=== PATIENT | male | born 1955 | race Caucasian/White ===

== ENCOUNTER → 2018-02-02 | Outpatient (CLI) | payer OTHER | LOC: M WUC 19:00 | DX: S91.332A Puncture wound without foreign body, left foot, initial encounter (principal); X58.XXXA Exposure to other specified factors, initial encounter; Y92.9 Unspecified place or not applicable | CPT/HCPCS: 73620 ==

== ENCOUNTER → 2018-10-12 | Outpatient (REF) | payer MEDICARE, OTHER ==
[~2018-10-12] MED LIST: ACET65TA PO; ASPI81TA83; ATOR1TAB21 PO; BENI20TA11 OR; CARV6.25 PO; COUM1TAB17 PO; COUM1TAB18 OR; COZA100T2 PO; EC-N500T; EXTR500C4 PO; FLEET PR; GLUC850T PO; HYDR12.55 PO; IBUPOTC PO; LOSA100T8 PO; NICO21DI6 TD; OXYC10TA97 PO; PERC5TAB12 PO; PERC5TAB8 OR; PERC7.5T8 OR; TYLE325T5 PO; [UNRECOGNIZED DRUG - OTHER] PO
[2018-10-12 16:37] LABS: BASO # 0.1 10^3/uL (0.0-0.2); BASO % 0.7 % (0.0-1.0); EOS # 0.3 10^3/uL (0.0-0.50); EOS % 3.4 % (0.0-3.0); HEMATOCRIT 43.9 % (42.0-52.0); HEMOGLOBIN 14.5 g/dl (13.5-17.5); LYMPH # 2.4 10^3/uL (1.5-4.5); MEAN CORPUSCULAR HEMOGLOBIN 30.7 pg (27.0-33.0); MONO # 0.5 10^3/uL (0.0-0.8); MONO % 6.2 % (0.0-5.0); NEUTROPHILS # 5.3 10^3/uL (1.8-7.7); NEUTROPHILS % 61.4 % (36.0-66.0); PLATELET COUNT, AUTOMATED 253 10^3/uL (150-450); RED BLOOD COUNT 4.72 10^6/uL (4.30-6.10); WHITE BLOOD COUNT 8.7 10^3/uL (4.0-10.0)
[2018-10-12 17:24] LABS: ERYTHROCYTE SEDIMENTATION RATE 29 mm/hr (0-20)
== END ==
LOC: M LABDRAW1 15:42
PROVIDERS: ATTEND Orthopaedic Surgery
DX: Z96.642 Presence of left artificial hip joint (principal)

== ENCOUNTER → 2018-10-14 | Outpatient (CLI) | payer OTHER, MEDICARE ==
--- NOTE | 2018-10-14 13:37 | REP ---
THREE-PHASE BONE SCAN OF THE PELVIS HIPS AND THIGHS. HISTORY: Progressive left hip pain. History of left hip replacement 2016 and right hip replacement in 2011. Evaluate left hip. Rule out loose body. TECHNIQUE: 22.0 mCi technetium 99m MDP is injected and three-phase imaging of the pelvis and hips is acquired. Planar images are included of the distal thighs bilaterally. SCINTIGRAPHIC FINDINGS: Anterior and posterior flow images are normal. Blood pool images show no area of significant hyperemia. There is faint prosthesis bone interface uptake in the left hip prosthesis. Delayed scan images demonstrate prosthesis bone interface uptake along the medial aspect of the proximal femur at the level of the lesser trochanter. There is also a focus of increased uptake at the distal tip of the femoral stem prosthesis. This pattern is felt to be suggestive of loosening. There is arthritic uptake in the right knee patellofemoral articulation. Photopenia is seen in the right femoral head related to the right hip prosthesis. There is no evidence of loosening or infection on the right. IMPRESSION: Scintigraphic pattern of increased uptake at the proximal and mid femur on the left suggestive of loosening of the left femoral arthroplasty component. Electronically Signed by Nehemias Holman MD 10/14/2018 05:28 P
== END ==
LOC: M RAD 08:25
PROVIDERS: ATTEND Orthopaedic Surgery
DX: Z96.642 Presence of left artificial hip joint (principal)
CPT/HCPCS: 78315; A9503

== ENCOUNTER 2019-04-03 16:00 | Observation (INO) | payer MEDICARE, OTHER ==
[~2019-04-03] VITALS: Ht 182.9 cm; Wt 105.1 kg
[2019-04-03] MEDS ORDERED: ASPI81TA85 PO (16:17)
[2019-04-03] MEDS ORDERED: TRAM50TA2 PO (16:17)
[2019-04-03 16:52] LABS: BASO # 0.1 10^3/uL (0.0-0.2); BASO % 0.6 % (0.0-1.0); EOS # 0.2 10^3/uL (0.0-0.5); EOS % 1.8 % (0.0-3.0); HEMATOCRIT 40.2 % (42.0-52.0); HEMOGLOBIN 13.8 g/dl (13.5-17.5); LYMPH # 2.4 10^3/uL (1.5-5.0); LYMPH % 25.6 % (24.0-44.0); MEAN CORPUSCULAR HEMOGLOBIN 31.4 pg (27.0-33.0); MEAN CORPUSCULAR HGB CONC 34.3 g/dl (32.0-36.5); MEAN CORPUSCULAR VOLUME 91.4 fl (80.0-96.0); MONO # 0.6 10^3/uL (0.0-0.8); MONO % 6.6 % (0.0-5.0); NEUTROPHILS % 65.1 % (36.0-66.0); PLATELET COUNT, AUTOMATED 246 10^3/uL (150-450); WHITE BLOOD COUNT 9.3 10^3/uL (4.0-10.0)
[2019-04-03 17:34] LABS: ACETAMINOPHEN LEVEL < 2.0 UG/ML (10.0-30.0); ALBUMIN 3.3 GM/DL (3.2-5.2); ALT/SGPT 34 U/L (12-78); BILIRUBIN,DIRECT 0.1 MG/DL (0.0-0.2); BILIRUBIN,TOTAL 0.7 MG/DL (0.2-1.0); BLOOD UREA NITROGEN 15 MG/DL (7-18); CALCIUM LEVEL 8.9 MG/DL (8.8-10.2); CARBON DIOXIDE LEVEL 28 MEQ/L (21-32); CHLORIDE LEVEL 101 MEQ/L (98-107); CK-MB VALUE MASS 1.8 NG/ML (<3.6); CPK CREATINE PHOSPHOKINASE 99 U/L (39-308); CREATININE FOR GFR 1.19 MG/DL (0.70-1.30); ETHYL ALCOHOL (ETHANOL) < 0.003 % (0.000-0.010); GLOMERULAR FILTRATION RATE > 60.0 (>49); GLUCOSE, FASTING 236 MG/DL (70-100); MB/CK RELATIVE INDEX 1.82 (< OR =4); SALICYLATE LEVEL < 1.7 MG/DL (5.0-30.0); SODIUM LEVEL 135 MEQ/L (136-145); TOTAL PROTEIN 7.8 GM/DL (6.4-8.2); TROPONIN I < 0.02 NG/ML (< 0.10)
[2019-04-03 17:50] LABS: INR 1.08; PROTHROMBIN TIME 13.7 SECONDS (11.8-14.0)
[2019-04-03 17:56] LABS: HEMOGLOBIN A1c 8.8 %
[2019-04-03] MEDS: NS 1,000 ML IV SCH (18:37)
--- NOTE | 2019-04-03 19:12 | HPEPDOC ---
[facility] Medical History & Physical Date of Admission Apr 03, 2019 Date of Service: Apr 03, 2019 Primary Care Physician: A Other Provider Adán North MD Attending Physician: SYLVESTER CROCKETT MD History and Physical TIME OF SERVICE: 755PM CHIEF COMPLAINT: confusion HISTORY OF PRESENT ILLNESS: This is a 63 year-old male that was at a wedding earlier on today and unable to recognize anyone. He was calling everyone cheese sarita; this resolved upon arrival in the ED. Currently his verbal response is slow, when asked what day it is it takes him several attempts but he is finally able to give the right answer. This has been occurring off and on for 2 months; he finds it embarrassing. Per discussion with Yen his head and labs are unremarkable. Currently he denies having any acute complaints, denies having fevers, denies having chills, denies having cough, denies having a runny nose, denies having abdominal pain, denies having joint pain. 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 He was taken off of metformin about one year ago and no longer monitors his sugars. According to his he was told that he might have to start taking metformin again because he gained weight . REVIEW OF SYSTEMS: 12 point review of systems negative except as listed in HPI PAST MEDICAL/ SURGICAL HISTORY: Type 2 diabetes. Chronic hypertension. Dyslipidemia Right hip arthritis status post right total hip replacement Status post wrist surgery SOCIAL HISTORY: quit smoking 3 years ago FAMILY HISTORY: Mother may have had cancer ALLERGIES: Please see below. HOME MEDICATIONS: Please see below. PHYSICAL EXAMINATION: VITAL SIGNS: Please see below. GENERAL APPEARANCE: well-nourished, well-developed, not in apparent distress HEENT: no cephalic, atraumatic. Mucous members moist and pink CARDIOVASCULAR: rate and rhythm. No murmurs, rubs or gallops. Radial pulses are intact. There is no extremity edema LUNGS: Clear to auscultation bilaterally on room air MUSCULOSKELETAL: range of motion intact in all 4 extremities and back. INTEGUMENT: spider angiomata noted on the nares NEUROLOGICAL: cranial nerves II-12 are grossly intact. Speech is not dysarthric. trength 5 out of 5 in all extremities. Sensation intact in all extremities. There is no clonus. PSYCHIATRIC: alert and oriented, able to understand and follow commands LABORATORY DATA: See below. IMAGING: CT of the head. Based on personal visualizations appears unremarkable but the final report is pending. Chest x-ray there appears to be in obesity at the left, but the final report is pending MICROBIOLOGY: Please see below. ASSESSMENT: Mr. Sutherland is a 63-year-old male with a past medical history of diabetes, chronic hypertension, dyslipidemia and right hip OA who will be admitted for evaluation of intermittent episodes of confusion. PLAN: 1. Intermittent episodes of altered mental status Suspect that this may be due to hyperglycemia as the the patient is no longer taking anti-glycemic agents and has gained weight. Other possible causes include: TIA/stroke, hypertensive encephalopathy, hypothyroidism, hyperthyroidism) less likely, partial seizure. Vitals, electrolytes, LFTs, and serum alcohol are unrevealing. Plan: Admit to medical floor/telemetry/ neurochecks Q6H / ASA 325mg now / continue with aspirin 81mg daily, atorvastatin / f/u accuchecks, lipid panel, TSH, MRI of the brain and carotid US / follow up final head CT and chest x-ray reports/ pending the results of the inial work up, the day time team can determine if an EEG and or a neuro consult are warranted 2.Uncontrolled hypertension He hasn't taken his antihypertensive medication today. Plan: c/w home meds 3. Type 2 diabetes A1c 8.8 % Plan: diabetic diet / f/u accuchecks / hypoglycemia protocol / sliding scale insulin / the patient will need to be discharged with anti-glycemic agents 4.Right hip arthritis Plan: Decrease tramadol from 50-25 mg daily because this medication can cause confusion 5.Dyslipidemia c/w home meds 6.Obesity BMI 31.3 Plan: can f/u w PCP for ST[employer] BANG questionnaire & scrub technician consult / recommend cardiovascular exercise for 40 min 4-5 days a week DVT Px w SCDs Disposition pending clinical course Vital Signs Vital Signs Date Time Temp Pulse Resp B/P (MAP) Pulse Ox O2 Delivery O2 Flow Rate FiO2 04/03/19 18:30 72 162/74 (103) 04/03/19 18:00 99 Laboratory Data Labs 24H Laboratory Tests 2 04/03/19 16:38: Immature Granulocyte % (Auto) 0.3, White Blood Count 9.3, Red Blood Count 4.40, Hemoglobin 13.8, Hematocrit 40.2L, Mean Corpuscular Volume 91.4, Mean Corpuscular Hemoglobin 31.4, Mean Corpuscular Hemoglobin Concent 34.3, Red Cell Distribution Width 12.8, Platelet Count 246, Neutrophils (%) (Auto) 65.1, Lymphocytes (%) (Auto) 25.6, Monocytes (%) (Auto) 6.6H, Eosinophils (%) (Auto) 1.8, Basophils (%) (Auto) 0.6, Neutrophils # (Auto) 6.0, Lymphocytes # (Auto) 2.4, Monocytes # (Auto) 0.6, Eosinophils # (Auto) 0.2, Basophils # (Auto) 0.1, Nucleated Red Blood Cells % (auto) 0.0, Prothrombin Time 13.7, Prothromb Time International Ratio 1.08, Anion Gap 6L, Glomerular Filtration Rate > 60.0, Estimated Mean Plasma Glucose 206H, Hemoglobin A1c 8.8, Calcium Level 8.9, Aspartate Amino Transf (AST/SGOT) 15, Alanine Aminotransferase (ALT/SGPT) 34, Alkaline Phosphatase 91, Total Bilirubin 0.7, Direct Bilirubin 0.1, Total Creatine Kinase 99, Creatine Kinase MB 1.8, Creatine Kinase MB Relative Index 1.82, Troponin I < 0.02, Total Protein 7.8, Albumin 3.3, Albumin/Globulin Ratio 0.73L, Thyroid Stimulating Hormone (TSH) 1.000, Salicylates Level < 1.7L, Acetaminophen Level < 2.0L, Ethyl Alcohol Level < 0.003 CBC/BMP Laboratory Tests 04/03/19 16:38 Red Blood Count 4.40, Mean Corpuscular Volume 91.4, Mean Corpuscular Hemoglobin 31.4, Mean Corpuscular Hemoglobin Concent 34.3, Red Cell Distribution Width 12.8, Neutrophils (%) (Auto) 65.1, Lymphocytes (%) (Auto) 25.6, Monocytes (%) (Auto) 6.6 H, Eosinophils (%) (Auto) 1.8, Basophils (%) (Auto) 0.6, Neutrophils # (Auto) 6.0, Lymphocytes # (Auto) 2.4, Monocytes # (Auto) 0.6, Eosinophils # (Auto) 0.2, Basophils # (Auto) 0.1 Home Medications Scheduled Aspirin (Aspir 81) 81 Mg Tablet.dr, 81 MG PO QHS Atorvastatin Calcium (Atorvastatin Calcium) 20 Mg Tab, 20 MG PO QHS Carvedilol (Carvedilol) 6.25 Mg Tab, 6.25 MG PO QHS Losartan Potassium (Losartan Potassium) 25 Mg Tablet, 12.5 MG PO QHS Scheduled PRN Tramadol HCl (Tramadol HCl) 50 Mg Tablet, 50 MG PO DAILY PRN for pain Allergies Coded Allergies: morphine (Verified Adverse Reaction, Unknown, 04/03/19) A-FIB/CHADSVASC A-FIB History Current/History of A-Fib/PAF?: No Current PO Anticoag Therapy: No SYLVESTER CROCKETT MD Apr 03, 2019 19:12
[2019-04-03] MEDS ORDERED: DEXTROSE 50% 50 ML SYRINGE IV PRN (19:30)
[2019-04-03] MEDS ORDERED: GLUCAGON FOR INJ 1 MG VIAL (J1610) SC PRN (19:30)
[2019-04-03] MEDS ORDERED: GLUCOSE 4 GM CHEW TABLET PO PRN (19:30)
[2019-04-03] MEDS ORDERED: ASPIRIN 81 MG CHEW TABLET PO ONE (19:30)
[2019-04-03] MEDS ORDERED: LOSA25TA14 PO (19:54)
[2019-04-03] MEDS ORDERED: traMADol 50 MG TAB PO PRN (20:30)
[2019-04-03] MEDS: HumaLOG INSULIN (NovoLOG) PER UNIT SC SCH (21:00)
--- NOTE | 2019-04-03 21:03 | REPVR ---
PROCEDURE INFORMATION: Exam: US Duplex Bilateral Extracranial Arteries Exam date and time: 04/03/2019 8:13 PM Clinical history: 63 years old, male; Altered mental status/memory loss; Confusion or disorientation; Additional info: Altered mental status R/O CVA TECHNIQUE: Imaging protocol: Real-time Duplex ultrasound scan of the Bilateral carotid and vertebral arteries combining calles scale, color Doppler and spectral waveform analysis. Bilateral exam. COMPARISON: No relevant prior studies available. FINDINGS: Right common carotid artery: Unremarkable. No occlusion or stenosis. Waveforms are normal. Right internal carotid artery: Mild plaque in the proximal ICA. No occlusion or stenosis. Waveforms are normal. Right ICA/CCA ratio: Right ICA/CCA peak systolic ratio:0.74 Right ICA/CCA end-diastolic ratio:1.70 Right external carotid artery: No stenosis in the origin. Right vertebral artery: Not visualized. Left common carotid artery: Unremarkable. No occlusion or stenosis. Waveforms are normal. Left internal carotid artery: Mild plaque in the origin. Peak systolic velocity of 131 cm/s proximally increasing to 176 cm/s distally. Mild turbulent of blood flow. Left ICA/CCA ratio: Left ICA/CCA peak systolic ratio:1.5 Left external carotid artery: Left ICA/ECA end diastolic ratio: 4.25 Left vertebral artery: Unremarkable. Antegrade flow. IMPRESSION: 1. Elevated velocity and pattern of blood flow in the left ICA 50-69% stenosis. 2. No significant right ICA stenosis. 3. Antegrade flow left vertebral artery. 4. Right vertebral artery was not visualized. COMMENT: Carotid Stenosis Reference using SRU criteria: Mild: less than 50% stenosis. ICA PSV is less than 125 cm/second and plaque or intimal thickening is visible. Moderate: 50-69% stenosis. ICA PSV is 125 to 230 cm/second and plaque is visible. Severe: 70-94% stenosis. ICA PSV is more than 230 cm/second and visible plaque and lumen narrowing are seen. Near occlusion: 95-99% stenosis. ICA PSV is variable and significant plaque and luminal narrowing are seen. Occluded: 100% stenosis. No flow identified. Electronically signed by: Ancelmo Gomez On 04/03/2019 21:03:27 PM
[2019-04-03 21:05] LABS: CHOLESTEROL LEVEL 96 MG/DL (<200); CHOLESTEROL RISK RATIO 3.428 (<5); HDL CHOLESTEROL 28 MG/DL (>40); LDL CHOLESTEROL 39 MG/DL (<100); NON-HDL-C 68 MG/DL; TRIGLYCERIDES LEVEL 145 MG/DL (<150)
[2019-04-03 22:00] VITALS: BP 153/75
[2019-04-03] MEDS: LOSARTAN 25 MG TAB PO SCH (22:48)
[2019-04-03] MEDS: CARVedilol 6.25 MG TAB PO SCH (22:49)
[2019-04-03] MEDS: ATORVASTATIN 20 MG TAB PO SCH (22:49)
[2019-04-04] VITALS (8 sets, daily range): BP systolic 118–168; BP diastolic 66–95
[2019-04-04] MEDS: NS 1,000 ML IV SCH ×2 (04:42→16:24)
[2019-04-04] MEDS ORDERED: ISOVUE-370 76% 100ML VIAL (Q9967) As Ordered ONE (06:02)
--- NOTE | 2019-04-04 06:41 | REPVR ---
PROCEDURE INFORMATION: Exam: CT Head without contrast Exam date and time: 04/04/2019 6:10 AM Clinical history: 63 years old, male; Altered mental status/memory loss; Confusion or disorientation; Additional info: AMS TECHNIQUE: Imaging protocol: Computed tomography of the head without contrast. Radiation optimization: All CT scans at this facility use at least one of these dose optimization techniques: automated exposure control; mA and/or kV adjustment per patient size (includes targeted exams where dose is matched to clinical indication); or iterative reconstruction. COMPARISON: CT Head without contrast 04/03/2019 4:08 PM FINDINGS: Brain: There is mild, diffuse parenchymal volume loss. The cortical/white matter interfaces are preserved throughout the brain. There is no evidence of intracranial hemorrhage. No parenchymal mass lesions are identified. Ventricles: The ventricular system demonstrates mild diffuse compensatory enlargement. Bones/joints: No acute fractures of the skull are identified. Sinuses: There is minimal mucoperiosteal thickening in the visualized paranasal sinuses. No fluid levels. Mastoid air cells: The visualized mastoid air cells are clear. Soft tissues: The soft tissues appear unremarkable. Vasculature: Atherosclerotic calcifications are seen in the cerebral arteries at the skull base. IMPRESSION: No evidence of acute infarct, mass or hemorrhage. Electronically signed by: Roula Gloria On 04/04/2019 06:40:57 AM
--- NOTE | 2019-04-04 06:49 | REPVR ---
PROCEDURE INFORMATION: Exam: CT Angiography Head With Contrast Exam date and time: 04/04/2019 6:10 AM Clinical history: 63 years old, male; Cognitive deficit; Altered mental status; Additional info: AMS RO CVA / ? MR use 2/2 to hip hardware TECHNIQUE: Imaging protocol: Computed tomography angiography of the head with intravenous contrast. 3D rendering: MIP reconstructed images were created and reviewed. Radiation optimization: All CT scans at this facility use at least one of these dose optimization techniques: automated exposure control; mA and/or kV adjustment per patient size (includes targeted exams where dose is matched to clinical indication); or iterative reconstruction. Contrast material: ISOVUE 370; Contrast volume: 100 ml; Contrast route: IV; COMPARISON: CT Head without contrast 04/03/2019 4:08 PM FINDINGS: Right internal carotid artery: There is atherosclerotic calcification in the petrous and cavernous portions of the right internal carotid artery. No stenosis, occlusion or aneurysm. Right anterior cerebral artery: No occlusion, stenosis, or aneurysm. Right middle cerebral artery: No occlusion, stenosis, or aneurysm. Right posterior cerebral artery: No occlusion, stenosis, or aneurysm. Right vertebral artery: There is fusiform dilation of the distal right vertebral artery, measuring up to 6.0 mm in diameter. No stenosis or occlusion. Left internal carotid artery: There is atherosclerotic calcification in the cavernous portion of the left internal carotid artery. No stenosis, occlusion, or aneurysm. Left anterior cerebral artery: The A1 segment of the left anterior cerebral artery is diffusely small in caliber, likely a normal variant. The remainder of the left ASH is normal in caliber, supplied across the anterior communicating artery. Left middle cerebral artery: No occlusion, stenosis, or aneurysm. Left posterior cerebral artery: No occlusion, stenosis, or aneurysm. Left vertebral artery: No occlusion, stenosis, or dissection. Basilar artery: There is mild fusiform dilation of the basilar artery proximally, measuring 5.5 mm in diameter. The mid basilar artery measures 4.2 mm. The distal basilar artery measures 3.8 mm. IMPRESSION: 1. 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 2. Fusiform dilation of the proximal basilar artery, measuring up to 5.5 mm. 3. Atherosclerotic calcification in the bilateral internal carotid arteries, but no associated significant stenosis or occlusion. Electronically signed by: Roula Gloria On 04/04/2019 06:49:15 AM
--- NOTE | 2019-04-04 07:01 | REPVR ---
PROCEDURE INFORMATION: Exam: CT Angiography Neck With Contrast Exam date and time: 04/04/2019 6:10 AM Clinical history: 63 years old, male; Cognitive deficit; Altered mental status; Additional info: AMS RO CVA / ? MR use 2/2 to hip hardware TECHNIQUE: Imaging protocol: Computed tomography angiography of the neck with intravenous contrast. 3D rendering: MIP reconstructed images were created and reviewed. Radiation optimization: All CT scans at this facility use at least one of these dose optimization techniques: automated exposure control; mA and/or kV adjustment per patient size (includes targeted exams where dose is matched to clinical indication); or iterative reconstruction. Contrast material: ISOVUE 370; Contrast volume: 100 ml; Contrast route: IV; COMPARISON: No relevant prior studies available. FINDINGS: VASCULATURE: Right common carotid artery: Unremarkable. No stenosis. No dissection or occlusion. Right internal carotid artery: There is predominantly calcified plaque at the right carotid bulb and proximal right internal carotid artery. There is only minimal luminal narrowing, well less than 50% stenosis. Right external carotid artery: Unremarkable. No occlusion or stenosis of the origin. Right vertebral artery: No occlusion, significant stenosis, or dissection. Left common carotid artery: Unremarkable. No stenosis. No dissection or occlusion. Left internal carotid artery: There is calcified and noncalcified plaque at the left carotid bulb and proximal left internal carotid artery. There is a high-grade stenosis in the proximal left internal carotid artery, with lumen narrowed to 1.5 mm in diameter at its narrowest compared to 5.0 mm beyond the stenosis, an estimated 70% stenosis. Left external carotid artery: There is plaque in the proximal left external carotid artery without significant stenosis. Left vertebral artery: No occlusion, significant stenosis, or dissection. Aorta: The visualized aortic arch demonstrates mild atherosclerotic calcification. NECK: Sinuses: There is diffuse mucoperiosteal thickening in the bilateral maxillary sinuses, consistent with chronic sinusitis. Bones/joints: Degenerative endplate changes are seen at multiple levels in the visualized spine. Soft tissues: The soft tissues appear unremarkable. Lungs: There is mild patchy groundglass opacity in the visualized upper lungs. IMPRESSION: 1. Plaque at the left carotid bulb and proximal left internal and external carotid arteries. Associated high grade stenosis estimated 70% stenosis at the proximal left internal carotid artery. 2. Plaque at the right carotid bulb, without significant luminal narrowing. COMMENT: Reference per NASCET criteria for degree of stenosis: Mild: less than 50% stenosis. Moderate: 50-69% stenosis. Severe: 70-94% stenosis. Near occlusion: 95-99% stenosis. Electronically signed by: Roula Gloria On 04/04/2019 07:01:05 AM
--- NOTE | 2019-04-04 08:05 | REP ---
CT BRAIN WITHOUT CONTRAST: 04/03/2019. Clinical history: Neurologic symptoms. Findings: No prior studies. Soft tissue and bone windows are reviewed for each slice level. Lateral ventricles are midline, symmetric and without dilatation or displacement. Third and fourth ventricles were also unremarkable. There is no midline shift. Basal ganglia symmetric and normal. There is some minor heterogeneous low attenuation white matter change in the bilateral hemispheres suggest chronic small vessel ischemic disease. There are some calcifications in the anterior falx as benign finding. Mild cortical atrophy, age appropriate and proportionate to the ventricular size. I do not see vascular territory infarct, intracranial hemorrhage, mass, mass effect or edema. Posterior fossa shows brainstem intact and the cerebellum without acute finding. Basal cisterns intact. There are fairly heavy calcifications in the carotid siphons, right more than left. Mastoids and the visualized sinuses show minor ethmoid sinus mucosal thickening. Calvarium and skull base are without fracture or focal lesion. Impression: 1. Minor atrophy, age appropriate without acute infarct, intracranial hemorrhage, mass or mass effect. 2. Chronic small vessel white matter changes. No intracranial hemorrhage, infarct, edema or mass. 3. Sinuses, mastoids, skull base and calvarium without significant finding. Electronically Signed by Nash Dunaway MD 04/04/2019 10:37 A
--- NOTE | 2019-04-04 08:06 | REP ---
AP PORTABLE CHEST: 04/03/2019. Comparison: CT 10/28/2018, chest x-ray 10/23/2017. Clinical history: Altered mental status. Findings: Lung farrell are hypoinflated compared to the prior chest and CT. There is patchy infiltrate, atelectasis, left greater than right base. Small effusion difficult to exclude. Heart size not enlarged for this degree of inflation and portable technique. No vascular redistribution or edema. The aorta is mildly tortuous but grossly unchanged. Airway intact. Impression: 1. Some bibasilar atelectasis or infiltrates, left greater than right, with question of a small effusion raised. 2. Heart size magnified by low level of inflation and portable technique. No gross cardiomegaly. Electronically Signed by Nash Dunaway MD 04/04/2019 10:38 A
[2019-04-04 08:28] LABS: HEMATOCRIT 37.5 % (42.0-52.0); HEMOGLOBIN 13.3 g/dl (13.5-17.5); MEAN CORPUSCULAR HEMOGLOBIN 32.4 pg (27.0-33.0); MEAN CORPUSCULAR HGB CONC 35.5 g/dl (32.0-36.5); MEAN CORPUSCULAR VOLUME 91.2 fl (80.0-96.0); PLATELET COUNT, AUTOMATED 217 10^3/uL (150-450); RED BLOOD COUNT 4.11 10^6/uL (4.30-6.10); WHITE BLOOD COUNT 9.8 10^3/uL (4.0-10.0)
[2019-04-04] MEDS: HumaLOG INSULIN (NovoLOG) PER UNIT SC SCH ×4 (08:41→21:26)
[2019-04-04 08:44] LABS: BLOOD UREA NITROGEN 18 MG/DL (7-18); CALCIUM LEVEL 8.1 MG/DL (8.8-10.2); CARBON DIOXIDE LEVEL 23 MEQ/L (21-32); CHLORIDE LEVEL 100 MEQ/L (98-107); CREATININE FOR GFR 1.23 MG/DL (0.70-1.30); GLOMERULAR FILTRATION RATE > 60.0 (>49); GLUCOSE, FASTING 327 MG/DL (70-100); MAGNESIUM LEVEL 1.7 MG/DL (1.8-2.4); POTASSIUM SERUM 4.3 MEQ/L (3.5-5.1); SODIUM LEVEL 132 MEQ/L (136-145)
[2019-04-04] MEDS ORDERED: PREVNAR 13 VACCINE SYRINGE (CPT CODE:90670) IM ONE (09:00)
[2019-04-04 09:34] LABS: AMPHETAMINES LEVEL URINE NEGATIVE (NEGATIVE); BARBITURATES URINE NEGATIVE (NEGATIVE); BENZODIAZEPINES URINE NEGATIVE (NEGATIVE); CANNABINOIDS URINE NEGATIVE (NEGATIVE); COCAINE METABOLITE URINE NEGATIVE (NEGATIVE); METHADONE URINE NEGATIVE (NEGATIVE); OPIATES URINE NEGATIVE (NEGATIVE); PHENCYCLIDINE URINE NEGATIVE (NEGATIVE)
--- NOTE | 2019-04-04 12:23 | REP ---
MRI BRAIN WITHOUT CONTRAST: 04/04/2019. Comparison: CT brain, CT angio head 04/04/2019; CT brain 04/03/2019. Clinical history: Altered mental status. Rule out CVA. Two CTs in the last 16 hours are negative for acute finding. Technique: Sagittal FLAIR with axial T1, T2, FLAIR, gradient-echo sequences and diffusion-weighted images with ADC mapping. Findings: Lateral ventricles are midline, symmetric and their size proportionate to the mild diffuse cerebral atrophy. All of this age appropriate. Third and fourth ventricles were also unremarkable. Basal ganglia are symmetric with a few tiny punctate hyperintense foci suggesting dilated perineural spaces of Virchow. Sherman-white junction differentiation was well maintained. Although there is some cortical atrophy. There is no evidence of an old infarct, intra or extra-axial hemorrhage, mass or mass effect. No abnormal signal on the gradient echo images to suggest old blood. The brainstem and cerebellum show no signal abnormality. I see no cerebellar atrophy. There is some scattered periventricular and punctate subcortical hyperintense signal foci of T2 and FLAIR images suggesting some chronic small vessel white matter ischemic change. This is mild. The seventh/eighth cranial nerve complexes, mastoids and left sphenoid were unremarkable. The right sphenoid and bilateral ethmoid air cells show some mucosal thickening right frontal and visualized maxillary sinuses were clear. No air-fluid levels. Slight deviation of the septum towards the left. Orbits and contents were symmetric. Corpus callosum, optic chiasm, pituitary are normal. I do not see any compelling evidence for cerebellar tonsillar ectopia. No signal abnormality in the brainstem. As on the CTA head, there is ectasia and fusiform dilatation of the right vertebral artery and basilar artery. Likewise the M1 segment on the right also shows fusiform dilatation without focal aneurysm. Other intracranial vessels grossly unremarkable. The diffusion weighted images and ADC mapping sequences show no evidence of restricted water diffusion or acute ischemia. Impression: 1. Mild cortical atrophy, age appropriate without acute infarct, intracranial hemorrhage, mass, mass effect or edema. 2. Brainstem and cerebellum grossly intact. No intra or extra-axial fluid collections. 3. Some mild chronic small vessel white matter ischemic changes of aging. 4. Ectasia of the right vertebral artery, basilar artery and right-sided M1 segment of the MCA with some mild fusiform dilatation. No focal aneurysm. 5. No evidence of acute infarct on diffusion weighted imaging. Electronically Signed by Nash Dunaway MD 04/04/2019 07:03 P
--- NOTE | 2019-04-04 14:27 | IPNPDOC ---
Text Note Date of Service The patient was seen on 04/04/19. NOTE Subjective: Patient continues to have some forgetfulness and confusion in the morning. He recognized his , he remember how many children he has, he knows his address but he does not remember his name. According to his his been forgetful for prolonged period of time. Objective: VITAL SIGNS: Please see below. GENERAL APPEARANCE: well-nourished, well-developed, not in apparent distress HEENT: no cephalic, atraumatic. Mucous members moist and pink CARDIOVASCULAR: rate and rhythm. No murmurs, rubs or gallops. Radial pulses are intact. There is no extremity edema LUNGS: Clear to auscultation bilaterally on room air MUSCULOSKELETAL: range of motion intact in all 4 extremities and back. NEUROLOGICAL: cranial nerves II-12 are grossly intact. Speech is not dysarthric. Strength 5 out of 5 in all extremities. Sensation intact in all extremities. There is no clonus. PSYCHIATRIC: alert and oriented, able to understand and follow commands CT head IMPRESSION: No evidence of acute infarct, mass or hemorrhage. CTA IMPRESSION: 1. 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 2. Fusiform dilation of the proximal basilar artery, measuring up to 5.5 mm. 3. Atherosclerotic calcification in the bilateral internal carotid arteries, but no associated significant stenosis or occlusion. Neck CTA IMPRESSION: 1. Plaque at the left carotid bulb and proximal left internal and external carotid arteries. Associated high grade stenosis estimated 70% stenosis at the proximal left internal carotid artery. 2. Plaque at the right carotid bulb, without significant luminal narrowing. COMMENT: Reference per NASCET criteria for degree of stenosis: Mild: less than 50% stenosis. Moderate: 50-69% stenosis. Severe: 70-94% stenosis. Near occlusion: 95-99% stenosis. Brain MRI Impression: 1. Mild cortical atrophy, age appropriate without acute infarct, intracranial hemorrhage, mass, mass effect or edema. 2. Brainstem and cerebellum grossly intact. No intra or extra-axial fluid collections. 3. Some mild chronic small vessel white matter ischemic changes of aging. 4. Ectasia of the right vertebral artery, basilar artery and right-sided M1 segment of the MCA with some mild fusiform dilatation. No focal aneurysm. 5. No evidence of acute infarct on diffusion weighted imaging. US Duplex Bilateral Extracranial Arteries 1. Elevated velocity and pattern of blood flow in the left ICA 50-69% stenosis. 2. No significant right ICA stenosis. 3. Antegrade flow left vertebral artery. 4. Right vertebral artery was not visualized. Assessment and plan Mr. Sutherland is a 63-year-old male with a past medical history of diabetes, chronic hypertension, dyslipidemia and right hip OA who will be admitted for e valuation of intermittent episodes of confusion. Altered mental status: Unclear etiology BMP, CBC unremarkable, TSH normal MRI of the brain did not show any mass or bleeding or ischemic stroke Unlikely internal carotid stenosis is cause of his confusion Differential diagnosis includes Alzheimer's, Lewy body dementia, UTI Urine analysis Appreciate/agree with neurologist consult Left ICS Severe, 70%, most likely needs left endarterectomy Vascular surgery consult Type 2 diabetes HbA1c 8.8 Patient was prescribed metformin but he didn't take Insulin sliding scale He is insulin derick, I will prescribe 15 units of detemir overnight Dyslipidemia c/w home meds Obesity BMI 31.3 Follow-up with marketing content specialist in the outpatient settings Right hip arthritis Decreased tramadol from 50-25 mg daily because this medication can cause confusion VS,Fishbone, I+O VS, Fishbone, I+O Laboratory Tests 04/03/19 16:38 Red Blood Count 4.40, Mean Corpuscular Volume 91.4, Mean Corpuscular Hemoglobin 31.4, Mean Corpuscular Hemoglobin Concent 34.3, Red Cell Distribution Width 12.8, Neutrophils (%) (Auto) 65.1, Lymphocytes (%) (Auto) 25.6, Monocytes (%) (Auto) 6.6 H, Eosinophils (%) (Auto) 1.8, Basophils (%) (Auto) 0.6, Neutrophils # (Auto) 6.0, Lymphocytes # (Auto) 2.4, Monocytes # (Auto) 0.6, Eosinophils # (Auto) 0.2, Basophils # (Auto) 0.1 04/04/19 07:59 Red Blood Count 4.11 L, Mean Corpuscular Volume 91.2, Mean Corpuscular Hemogl obin 32.4, Mean Corpuscular Hemoglobin Concent 35.5, Red Cell Distribution Width 12.8, Calcium Level 8.1 L Vital Signs Date Time Temp Pulse Resp B/P (MAP) Pulse Ox O2 Delivery O2 Flow Rate FiO2 04/04/19 12:00 98.5 74 18 149/75 (99) 96 04/03/19 21:29 Room Air I&O- Last 24 Hours up to 6 AM 04/04/19 06:00 Intake Total 1175 ml Balance 1175 ml GWEN GUERRERO DO Apr 04, 2019 14:27
[2019-04-04] MEDS ORDERED: CLOPIDOGREL 75 MG TAB PO ONE (20:15)
[2019-04-04] MEDS ORDERED: LEVEMIR (INSULIN DETEMIR) 1 UNITS/0.01ML SC SCH (21:00)
[2019-04-04] MEDS ORDERED: ASPIRIN 81 MG ENTERIC TAB PO SCH (21:00)
[2019-04-04] MEDS: CARVedilol 6.25 MG TAB PO SCH (21:23)
[2019-04-04] MEDS: ATORVASTATIN 20 MG TAB PO SCH (21:23)
[2019-04-04] MEDS: LOSARTAN 25 MG TAB PO SCH (21:24)
--- NOTE | 2019-04-04 23:07 | CR.PDOC ---
General Date of Consultation: Apr 04, 2019 Consultation REASON FOR CONSULTATION/CHIEF COMPLAINT: Possible TIA and carotid stenosis HISTORY OF PRESENT ILLNESS: Very pleasant 63yo gentleman with <24hr episode of confusion, flat affect, and difficulty finding words. He went to a wedding, and couldn't remember any of his friends and acquaintances. Following this, he and his went to lunch, and he couldnt answer the waiter/waitress second class appropriately about his drink order and seemed confused. When his tried to help him out the car, he was able to walk fine and she did not notice any weakness. When he was in the car, he couldnt seem to figure out how to put on his seatbelt or close the door. His said he was able to move all 4 extremities but seemed confused about what he was doing. She says this has never happened before. She is concerned. The patient says he remembers most of the day but doesnt remember coming to the hospital. He says today he feels himself again, and the whole episode lasted <24 hours. He denies previous episodes of amaurosis, speech difficulties, or focal deficits. We discussed the findings on his CTA of the neck and carotid duplex. Based on velocities and imaging, I estimate ~65-70% stenosis L ICA. L ICA PSV/EDV 176/44 mid-distal. This correlates with stenosis and mixed ICA plaque on CTA. R ICA is < 50% stenosis. L vertebral is antegrade, R vertebral not visulaized and may be occluded. I discussed with the patient and his that he is in a bit of a calles area for discussion of carotid endarterectomy. IF asymptomatic, we recommend best medical management with asa, statin, and we would add plavix. If this episode etiology was a TIA, then the ICA stenosis is likely symptomatic and CEA would be warranted. I would like our neurologist to evaluate and further recommendations to follow after discussing the patient with them. For now, we will start plavix. ALLERGIES: Please see below. HOME MEDICATIONS: Please see below. PAST MEDICAL HISTORY: 1. HTN 2. HLD 3. DM PAST SURGICAL HISTORY: 1. Hip replacement 2. Wrist surgery FAMILY HISTORY: Heart disease, cancer SOCIAL HISTORY: , denies tobacco, etoh, illicit drug use REVIEW OF SYSTEMS: CONSTITUTIONAL: Denies weight loss, +weight gain HEENT: Denies vision changes CARDIOVASCULAR: Denies CP, palpitations RESPIRATORY: Denies SOB GENITOURINARY: Denies dysuria MUSCULOSKELETAL: +back pain, +uneven lower extremities GASTROINTESTINAL: denies n/v/d/c SKIN: Denies rashes NEUROLOGICAL: +recent confusion, dysphasia, mental status changes concerning for TIA PSYCHIATRIC: Pleasant and cooperative ENDOCRINE: +DM HEMATOLOGIC/LYMPHATIC: Denies bleeding/clotting disorder ALLERGIC/IMMUNOLOGIC: denies. PHYSICAL EXAMINATION: VITAL SIGNS: Please see below. GENERAL APPEARANCE: Well appearing HEENT: THOMAS, TMI RESPIRATORY: CTA CARDIOVASCULAR: RRR ABDOMEN: soft NT EXTREMITIES: +pulses NEUROLOGICAL: MAEE, strength and motor intact, A&Ox3 PSYCHIATRIC: pleasant and cooperative LABORATORY DATA: Please see below. ASSESSMENT/PLAN: 1. Continue asa and statin. Will start plavix for now. 2. D/w neurology their opinion for etiology of this recent episode. 3. Further recommendations re possible CEA to follow. Vital Signs/I&O Vital Signs Date Time Temp Pulse Resp B/P (MAP) Pulse Ox O2 Delivery O2 Flow Rate FiO2 04/04/19 21:24 151/66 04/04/19 21:23 77 04/04/19 20:00 96.9 20 95 04/03/19 21:29 Room Air I&O- Last 24 Hours up to 6 AM 04/04/19 08:59 Intake Total 1175 ml Balance 1175 ml Laboratory Data Labs 24H Laboratory Tests 2 04/03/19 22:38: Bedside Glucose (Misc Panel) 243H 04/04/19 07:59: Nucleated Red Blood Cells % (auto) 0.0, Anion Gap 9, Glomerular Filtration Rate > 60.0, Blood Urea Nitrogen 18, Creatinine 1.23, Sodium Level 132L, Potassium Level 4.3, Chloride Level 100, Carbon Dioxide Level 23, Calcium Level 8.1L, Magnesium Level 1.7L 04/04/19 08:21: Bedside Glucose (Misc Panel) 318H 04/04/19 08:44: Urine Color YELLOW, Urine Appearance CLEAR, Urine pH 6.0, Urine Specific [place] 1.050, Urine Protein NEGATIVE, Urine Glucose (UA) 3+H, Urine Ketones NEGATIVE, Urine Blood NEGATIVE, Urine Nitrite NEGATIVE, Urine Bilirubin NEGATIVE, Urine Urobilinogen 0.2, Urine Leukocyte Esterase NEGATIVE, Urine WBC (Auto) 0, Urine RBC (Auto) 1, Urine Hyaline Casts (Auto) 0, Urine Bacteria (Auto) NEGATIVE, U rine Squamous Epithelial Cells 0, Urine Sperm (Auto) , Urine Amphetamines Screen NEGATIVE, Urine Benzodiazepines Screen NEGATIVE, Urine Opiates Screen NEGATIVE, Urine Methadone Screen NEGATIVE, Urine Barbiturates Screen NEGATIVE, Urine Phencyclidine Screen NEGATIVE, Urine Cocaine Metabolite Screen NEGATIVE, Urine Cannabinoids Screen NEGATIVE 04/04/19 11:33: Bedside Glucose (Misc Panel) 190H 04/04/19 17:17: Bedside Glucose (Misc Panel) 165H 04/04/19 21:18: Bedside Glucose (Misc Panel) 268H CBC/BMP Laboratory Tests 04/04/19 07:59 Red Blood Count 4.11 L, Mean Corpuscular Volume 91.2, Mean Corpuscular Hemoglobin 32.4, Mean Corpuscular Hemoglobin Concent 35.5, Red Cell Distribution Width 12.8, Calcium Level 8.1 L Allergies Coded Allergies: morphine (Verified Adverse Reaction, Unknown, 04/03/19) Home Medications Scheduled Aspirin (Aspir 81) 81 Mg Tablet.dr, 81 MG PO QHS, (Reported) Atorvastatin Calcium (Atorvastatin Calcium) 20 Mg Tab, 20 MG PO QHS, (Reported) Carvedilol (Carvedilol) 6.25 Mg Tab, 6.25 MG PO QHS, (Reported) Losartan Potassium (Losartan Potassium) 25 Mg Tablet, 12.5 MG PO QHS, (Reported) Scheduled PRN Tramadol HCl (Tramadol HCl) 50 Mg Tablet, 50 MG PO DAILY PRN for pain, (Reported) GUERA CERDA MD Apr 04, 2019 22:38
[2019-04-05] MEDS: NS 1,000 ML IV SCH ×2 (02:22→08:31)
[2019-04-05 03:49] VITALS: BP 134/67
[2019-04-05 08:00] VITALS: BP 141/71
--- NOTE | 2019-04-05 08:19 | ECGEPIP ---
[facility] - ED Test Date: 2019-04-03 Pat Name: KATHERINE HARRIS Department: Room: [place] [address] Gender: Male Ab Initio Etl Developer: TC : 1955 Requested By: Mick Todd Order Number: [id number] Reading MD: Marilynn Temple Measurements Intervals [place] Rate: 73 P: 49 MA: 164 QRS: 13 QRSD: 80 T: 13 QT: 358 QTc: 397 Interpretive Statements SINUS RHYTHM INCREASED RATE 07/20/15 Electronically Signed on 04-05-2019 8:19:20 EDT by Marilynn Temple
[2019-04-05] MEDS: HumaLOG INSULIN (NovoLOG) PER UNIT SC SCH ×3 (08:33→17:24)
[2019-04-05] MEDS ORDERED: LEVEMIR (INSULIN DETEMIR) 1 UNITS/0.01ML SC SCH (09:00)
[2019-04-05] MEDS ORDERED: CLOPIDOGREL 75 MG TAB PO SCH (09:00)
[2019-04-05 09:02] LABS: BLOOD UREA NITROGEN 12 MG/DL (7-18); CALCIUM LEVEL 8.2 MG/DL (8.8-10.2); CARBON DIOXIDE LEVEL 20 MEQ/L (21-32); CHLORIDE LEVEL 109 MEQ/L (98-107); CREATININE FOR GFR 1.05 MG/DL (0.70-1.30); GLOMERULAR FILTRATION RATE > 60.0 (>49); GLUCOSE, FASTING 230 MG/DL (70-100); SODIUM LEVEL 138 MEQ/L (136-145)
[2019-04-05 09:16] LABS: HEMATOCRIT 36.4 % (42.0-52.0); HEMOGLOBIN 12.6 g/dl (13.5-17.5); MEAN CORPUSCULAR HEMOGLOBIN 32.4 pg (27.0-33.0); MEAN CORPUSCULAR HGB CONC 34.6 g/dl (32.0-36.5); MEAN CORPUSCULAR VOLUME 93.6 fl (80.0-96.0); PLATELET COUNT, AUTOMATED 184 10^3/uL (150-450); RED BLOOD COUNT 3.89 10^6/uL (4.30-6.10); WHITE BLOOD COUNT 7.4 10^3/uL (4.0-10.0)
--- NOTE | 2019-04-05 10:07 | IPNPDOC ---
Date Seen The patient was seen on 04/05/19. Progress Note Pt seen and examined. Doing "much better" today per the patient and his . He says he feels like himself and really wants to go home today. Vision intact, speech clear, no trouble finding words, no confusion, MAEE and no focal deficits noted. We discussed again waiting today for neurology evaluation, and further recommendations +/- L CEA to follow. Cont asa and statin daily, and added plavix yesterday for best medical management in the interim. Patient and his were thoroughly counseled, and all questions answered. VS, I&O, 24H, Fishbone Vital Signs/I&O Vital Signs Date Time Temp Pulse Resp B/P (MAP) Pulse Ox O2 Delivery O2 Flow Rate FiO2 04/05/19 08:00 96.9 60 20 141/71 (94) 97 04/03/19 21:29 Room Air l I&O- Last 24 Hours up to 6 AM 04/05/19 06:00 Intake Total 2368 ml Output Total 500 ml Balance 1868 ml Laboratory Data 24H LABS Laboratory Tests 2 04/04/19 11:33: Bedside Glucose (Misc Panel) 190H 04/04/19 17:17: Bedside Glucose (Misc Panel) 165H 04/04/19 21:18: Bedside Glucose (Misc Panel) 268H 04/05/19 07:21: Bedside Glucose (Misc Panel) 214H 04/05/19 08:08: Anion Gap 9, Glomerular Filtration Rate > 60.0, Blood Urea Nitrogen 12, Creatinine 1.05, Sodium Level 138, Potassium Level 4.0, Chloride Level 109H, Carbon Dioxide Level 20L, Calcium Level 8.2L 04/05/19 08:56: Nucleated Red Blood Cells % (auto) 0.0 CBC/BMP Laboratory Tests 04/05/19 08:08 Calcium Level 8.2 L 04/05/19 08:56 Red Blood Count 3.89 L, Mean Corpuscular Volume 93.6, Mean Corpuscular Hemogl obin 32.4, Mean Corpuscular Hemoglobin Concent 34.6, Red Cell Distribution Width 13.1 GUERA CERDA MD Apr 05, 2019 10:07
[2019-04-05] MEDS ORDERED: PREVNAR 13 VACCINE SYRINGE (CPT CODE:90670) IM ONE (11:00)
[2019-04-05 12:00] VITALS: BP 118/65
--- NOTE | 2019-04-05 15:43 | IPNPDOC ---
Text Note Date of Service The patient was seen on 04/05/19. NOTE Subjective: Patient markedly improved. He answered the questions appropriately Objective: VITAL SIGNS: Please see below. GENERAL APPEARANCE: well-nourished, well-developed, not in apparent distress HEENT: no cephalic, atraumatic. Mucous members moist and pink CARDIOVASCULAR: rate and rhythm. No murmurs, rubs or gallops. Radial pulses are intact. There is no extremity edema LUNGS: Clear to auscultation bilaterally on room air MUSCULOSKELETAL: range of motion intact in all 4 extremities and back. NEUROLOGICAL: cranial nerves II-12 are grossly intact. Speech is not dysarthric. Strength 5 out of 5 in all extremities. Sensation intact in all extremities. There is no clonus. PSYCHIATRIC: alert and oriented, able to understand and follow commands Assessment and plan Mr. Sutherland is a 63-year-old male with a past medical history of diabetes, chronic hypertension, dyslipidemia and right hip OA who will be admitted for evaluation of intermittent episodes of confusion. Unclear etiology. Differential diagnosis includes TIA, Lewy body dementia. Vascular surgeon recommended to add Plavix and aspirin to his medical regimen. If this episode etiology was a TIA, then the ICA stenosis is likely symptomatic and CEA would be warranted. Altered mental status: Unclear etiology. Differential diagnosis includes TIA, Lewy body dementia BMP, CBC unremarkable, TSH normal MRI of the brain did not show any mass or bleeding or ischemic stroke Unlikely internal carotid stenosis is cause of his confusion Vascular surgeon recommended to add Plavix and aspirin to his medical regimen. If this episode etiology was a TIA, then the ICA stenosis is likely symptomatic and CEA would be warranted. Await neurologist input Differential diagnosis includes Alzheimer's, Lewy body dementia, UTI Urine analysis Appreciate/agree with neurologist consult Left ICS Severe, 70%, most likely needs left endarterectomy follow rec from vascular surgeon Type 2 diabetes HbA1c 8.8 Patient was prescribed metformin but he didn't take Insulin sliding scale He is insulin derick, I prescribed detemir BID Dyslipidemia c/w home meds Obesity BMI 31.3 Follow-up with junior recruiter in the outpatient settings Right hip arthritis Decreased tramadol from 50-25 mg daily because this medication can cause confusion VS,Fishbone, I+O VS, Fishbone, I+O Laboratory Tests 04/05/19 08:08 Calcium Level 8.2 L 04/05/19 08:56 Red Blood Count 3.89 L, Mean Corpuscular Volume 93.6, Mean Corpuscular Hemoglobin 32.4, Mean Corpuscular Hemoglobin Concent 34.6, Red Cell Distribution Width 13.1 Vital Signs Date Time Temp Pulse Resp B/P (MAP) Pulse Ox O2 Delivery O2 Flow Rate FiO2 04/05/19 12:00 98.3 60 18 118/65 (82) 96 04/03/19 21:29 Room Air I&O- Last 24 Hours up to 6 AM0 04/05/19 06:00 Intake Total 2368 ml Output Total 500 ml Balance 1868 ml GWEN GUERRERO DO Apr 05, 2019 15:43
[2019-04-05 16:00] VITALS: BP 139/65
[2019-04-05] MEDS ORDERED: CLOP75TA2 PO (18:07)
[2019-04-05] MEDS ORDERED: METF-877 PO (18:07)
--- NOTE | 2019-04-05 18:10 | DS.PDOC ---
Discharge Summary General Date of Admission Apr 03, 2019 at 16:01 Date of Discharge 04/05/19 Discharge Summary PROCEDURES PERFORMED DURING STAY: None ADMITTING DIAGNOSES: Left ICS Altered mental status Type 2 diabetes Dyslipidemia Obesity Right hip arthritis global transient amnesia DISCHARGE DIAGNOSES: Left ICS Altered mental status Type 2 diabetes Dyslipidemia Obesity Right hip arthritis global transient amnesia COMPLICATIONS/CHIEF COMPLAINT: Altered Mential Status. HISTORY OF PRESENT ILLNESS: This is a 63 year-old male that was at a wedding earlier on today and unable to recognize anyone. He was calling everyone cheese burger; this resolved upon arrival in the ED. Currently his verbal response is slow, when asked what day it is it takes him several attempts but he is finally able to give the right answer. This has been occurring off and on for 2 months; he finds it embarrassing. Per discussion with Yen his head and labs are unremarkable. Currently he denies having any acute complaints, denies having fevers, denies having chills, denies having cough, denies having a runny nose, denies having abdominal pain, denies having joint pain. 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 He was taken off of metformin about one year ago and no longer monitors his sugars. According to his he was told that he might have to start taking metformin again because he gained weight . HOSPITAL COURSE: During hospital stay following issue addressed Altered mental status: Unclear etiology. Differential diagnosis includes TIA, Lewy body dementia, nain bal transient amnesia. Unlikely TIA no focal deficits BMP, CBC unremarkable, TSH normal MRI of the brain did not show any mass or bleeding or ischemic stroke Unlikely internal carotid stenosis is cause of his confusion Vascular surgeon recommended to add Plavix and aspirin to his medical regimen. If this episode etiology was a TIA, then the ICA stenosis is likely symptomatic and CEA would be warranted. Neurologist Dr. Ellington thinks patient developed global transient amnesia, no TIA Left ICS Severe, 70%, most likely needs left endarterectomy follow rec from vascular surgeon Type 2 diabetes HbA1c 8.8 Patient was prescribed metformin but he didn't take Insulin sliding scale He is insulin derick, I prescribed detemir BID. On discharge continue metformin. Dyslipidemia c/w home meds Obesity BMI 31.3 Follow-up with elementary school social worker in the outpatient settings Right hip arthritis Decreased tramadol from 50-25 mg daily because this medication can cause confusion DISCHARGE MEDICATIONS: Please see below. ALLERGIES: Please see below. PHYSICAL EXAMINATION ON DISCHARGE: VITAL SIGNS: Please see below. GENERAL APPEARANCE: well-nourished, well-developed, not in apparent distress HEENT: no cephalic, atraumatic. Mucous members moist and pink CARDIOVASCULAR: rate and rhythm. No murmurs, rubs or gallops. Radial pulses are intact. There is no extremity edema LUNGS: Clear to auscultation bilaterally on room air MUSCULOSKELETAL: range of motion intact in all 4 extremities and back. NEUROLOGICAL: cranial nerves II-12 are grossly intact. Speech is not dysarthric. Strength 5 out of 5 in all extremities. Sensation intact in all extremities. There is no clonus. PSYCHIATRIC: alert and oriented, able to understand and follow commands LABORATORY DATA: Please see below. IMAGING: PROCEDURE INFORMATION: Exam: CT Angiography Head With Contrast Exam date and time: 04/04/2019 6:10 AM Clinical history: 63 years old, male; Cognitive deficit; Altered mental status; Additional info: AMS RO CVA / ? MR use 2/2 to hip hardware TECHNIQUE: Imaging protocol: Computed tomography angiography of the head with intravenous contrast. 3D rendering: MIP reconstructed images were created and reviewed. Radiation optimization: All CT scans at this facility use at least one of these dose optimization techniques: automated exposure control; mA and/or kV adjustment per patient size (includes targeted exams where dose is matched to clinical indication); or iterative reconstruction. Contrast material: ISOVUE 370; Contrast volume: 100 ml; Contrast route: IV; COMPARISON: CT Head without contrast 04/03/2019 4:08 PM FINDINGS: Right internal carotid artery: There is atherosclerotic calcification in the petrous and cavernous portions of the right internal carotid artery. No stenosis, occlusion or aneurysm. Right anterior cerebral artery: No occlusion, stenosis, or aneurysm. Right middle cerebral artery: No occlusion, stenosis, or aneurysm. Right posterior cerebral artery: No occlusion, stenosis, or aneurysm. Right vertebral artery: There is fusiform dilation of the distal right vertebral artery, measuring up to 6.0 mm in diameter. No stenosis or occlusion. Left internal carotid artery: There is atherosclerotic calcification in the cavernous portion of the left internal carotid artery. No stenosis, occlusion, or aneurysm. Left anterior cerebral artery: The A1 segment of the left anterior cerebral artery is diffusely small in caliber, likely a normal variant. The remainder of the left ASH is normal in caliber, supplied across the anterior communicating artery. Left middle cerebral artery: No occlusion, stenosis, or aneurysm. Left posterior cerebral artery: No occlusion, stenosis, or aneurysm. Left vertebral artery: No occlusion, stenosis, or dissection. Basilar artery: There is mild fusiform dilation of the basilar artery proximally, measuring 5.5 mm in diameter. The mid basilar artery measures 4.2 mm. The distal basilar artery measures 3.8 mm. IMPRESSION: 1. 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 2. Fusiform dilation of the proximal basilar artery, measuring up to 5.5 mm. 3. Atherosclerotic calcification in the bilateral internal carotid arteries, but no associated significant stenosis or occlusion. Findings of this exam and knee CTA of the head were discussed with Dr. Guerrero at 04/04/2019 7:05 AM EDT. Electronically signed by: Gerardo Gloria On 04/04/2019 07:05:59 AM DD: GERARDO GLORIA MD 04/04/19 0610 DT: FRANDY 04/04/19 0705 DS: EMERSON 04/04/19 0705 PROCEDURE INFORMATION: Exam: CT Angiography Neck With Contrast Exam date and time: 04/04/2019 6:10 AM Clinical history: 63 years old, male; Cognitive deficit; Altered mental status; Additional info: AMS RO CVA / ? MR use 2/2 to hip hardware TECHNIQUE: Imaging protocol: Computed tomography angiography of the neck with intravenous contrast. 3D rendering: MIP reconstructed images were created and reviewed. Radiation optimization: All CT scans at this facility use at least one of these dose optimization techniques: automated exposure control; mA and/or kV adjustment per patient size (includes targeted exams where dose is matched to clinical indication); or iterative reconstruction. Contrast material: ISOVUE 370; Contrast volume: 100 ml; Contrast route: IV; COMPARISON: No relevant prior studies available. FINDINGS: VASCULATURE: Right common carotid artery: Unremarkable. No stenosis. No dissection or occlusion. Right internal carotid artery: There is predominantly calcified plaque at the right carotid bulb and proximal right internal carotid artery. There is only minimal luminal narrowing, well less than 50% stenosis. Right external carotid artery: Unremarkable. No occlusion or stenosis of the origin. Right vertebral artery: No occlusion, significant stenosis, or dissection. Left common carotid artery: Unremarkable. No stenosis. No dissection or occlusion. Left internal carotid artery: There is calcified and noncalcified plaque at the left carotid bulb and proximal left internal carotid artery. There is a high-grade stenosis in the proximal left internal carotid artery, with lumen narrowed to 1.5 mm in diameter at its narrowest compared to 5.0 mm beyond the stenosis, an estimated 70% stenosis. Left external carotid artery: There is plaque in the proximal left external carotid artery without significant stenosis. Left vertebral artery: No occlusion, significant stenosis, or dissection. Aorta: The visualized aortic arch demonstrates mild atherosclerotic calcification. NECK: Sinuses: There is diffuse mucoperiosteal thickening in the bilateral maxillary sinuses, consistent with chronic sinusitis. Bones/joints: Degenerative endplate changes are seen at multiple levels in the visualized spine. Soft tissues: The soft tissues appear unremarkable. Lungs: There is mild patchy groundglass opacity in the visualized upper lungs. IMPRESSION: 1. Plaque at the left carotid bulb and proximal left internal and external carotid arteries. Associated high grade stenosis estimated 70% stenosis at the proximal left internal carotid artery. 2. Plaque at the right carotid bulb, without significant luminal narrowing. COMMENT: Reference per NASCET criteria for degree of stenosis: Mild: less than 50% stenosis. Moderate: 50-69% stenosis. Severe: 70-94% stenosis. Near occlusion: 95-99% stenosis. Electronically signed by: Gerardo Gloria On 04/04/2019 07:01:05 AM MRI BRAIN WITHOUT CONTRAST: 04/04/2019. Comparison: CT brain, CT angio head 04/04/2019; CT brain 04/03/2019. Clinical history: Altered mental status. Rule out CVA. Two CTs in the last 16 hours are negative for acute finding. Technique: Sagittal FLAIR with axial T1, T2, FLAIR, gradient-echo sequences and diffusion-weighted images with ADC mapping. Findings: Lateral ventricles are midline, symmetric and their size proportionate to the mild diffuse cerebral atrophy. All of this age appropriate. Third and fourth ventricles were also unremarkable. Basal ganglia are symmetric with a few tiny punctate hyperintense foci suggesting dilated perineural spaces of Virchow. Sherman-white junction differentiation was well maintained. Although there is some cortical atrophy. There is no evidence of an old infarct, intra or extra-axial hemorrhage, mass or mass effect. No abnormal signal on the gradient echo images to suggest old blood. The brainstem and cerebellum show no signal abnormality. I see no cerebellar atrophy. There is some scattered periventricular and punctate subcortical hyperintense signal foci of T2 and FLAIR images suggesting some chronic small vessel white matter ischemic change. This is mild. The seventh/eighth cranial nerve complexes, mastoids and left sphenoid were unremarkable. The right sphenoid and bilateral ethmoid air cells show some mucosal thickening right frontal and visualized maxillary sinuses were clear. No air-fluid levels. Slight deviation of the septum towards the left. Orbits and contents were symmetric. Corpus callosum, optic chiasm, pituitary are normal. I do not see any compelling evidence for cerebellar tonsillar ectopia. No signal abnormality in the brainstem. As on the CTA head, there is ectasia and fusiform dilatation of the right vertebral artery and basilar artery. Likewise the M1 segment on the right also shows fusiform dilatation without focal aneurysm. Other intracranial vessels grossly unremarkable. The diffusion weighted images and ADC mapping sequences show no evidence of restricted water diffusion or acute ischemia. Impression: 1. Mild cortical atrophy, age appropriate without acute infarct, intracranial hemorrhage, mass, mass effect or edema. 2. Brainstem and cerebellum grossly intact. No intra or extra-axial fluid collections. 3. Some mild chronic small vessel white matter ischemic changes of aging. 4. Ectasia of the right vertebral artery, basilar artery and right-sided M1 segment of the MCA with some mild fusiform dilatation. No focal aneurysm. 5. No evidence of acute infarct on diffusion weighted imaging. PROCEDURE INFORMATION: Exam: US Duplex Bilateral Extracranial Arteries Exam date and time: 04/03/2019 8:13 PM Clinical history: 63 years old, male; Altered mental status/memory loss; Confusion or disorientation; Additional info: Altered mental status R/O CVA TECHNIQUE: Imaging protocol: Real-time Duplex ultrasound scan of the Bilateral carotid and vertebral arteries combining sherman scale, color Doppler and spectral waveform analysis. Bilateral exam. COMPARISON: No relevant prior studies available. FINDINGS: Right common carotid artery: Unremarkable. No occlusion or stenosis. Waveforms are normal. Right internal carotid artery: Mild plaque in the proximal ICA. No occlusion or stenosis. Waveforms are normal. Right ICA/CCA ratio: Right ICA/CCA peak systolic ratio:0.74 Right ICA/CCA end-diastolic ratio:1.70 Right external carotid artery: No stenosis in the origin. Right vertebral artery: Not visualized. Left common carotid artery: Unremarkable. No occlusion or stenosis. Waveforms are normal. Left internal carotid artery: Mild plaque in the origin. Peak systolic velocity of 131 cm/s proximally increasing to 176 cm/s distally. Mild turbulent of blood flow. Left ICA/CCA ratio: Left ICA/CCA peak systolic ratio:1.5 Left external carotid artery: Left ICA/ECA end diastolic ratio: 4.25 Left vertebral artery: Unremarkable. Antegrade flow. IMPRESSION: 1. Elevated velocity and pattern of blood flow in the left ICA 50-69% stenosis. 2. No significant right ICA stenosis. 3. Antegrade flow left vertebral artery. 4. Right vertebral artery was not visualized. COMMENT: Carotid Stenosis Reference using SRU criteria: Mild: less than 50% stenosis. ICA PSV is less than 125 cm/second and plaque or intimal thickening is visible. Moderate: 50-69% stenosis. ICA PSV is 125 to 230 cm/second and plaque is visible. Severe: 70-94% stenosis. ICA PSV is more than 230 cm/second and visible plaque and lumen narrowing are seen. Near occlusion: 95-99% stenosis. ICA PSV is variable and significant plaque and luminal narrowing are seen. Occluded: 100% stenosis. No flow identified. Electronically signed by: Ancelmo Gomez On 04/03/2019 21:03:27 PM PROGNOSIS: Favorable ACTIVITY: As tolerated DIET: Diabetes DISCHARGE PLAN: Follow-up with neurologist, briskly surgeon, PCP DISPOSITION: Home DISCHARGE INSTRUCTIONS: 1 check glucose level before each meal ITEMS TO FOLLOWUP ON ON OUTPATIENT: Take medications as prescribed DISCHARGE CONDITION: Stable TIME SPENT ON DISCHARGE: Greater than 40 minutes. Vital Signs/I&Os Vital Signs Date Time Temp Pulse Resp B/P (MAP) Pulse Ox O2 Delivery O2 Flow Rate FiO2 04/05/19 16:00 98.7 62 18 139/65 (89) 97 04/03/19 21:29 Room Air I&O- Last 24 Hours up to 6 AM 04/05/19 05:59 Intake Total 2373 ml Output Total 500 ml Balance 1873 ml Laboratory Data Labs 24H Laboratory Tests 2 04/04/19 21:18: Bedside Glucose (Misc Panel) 268H 04/05/19 07:21: Bedside Glucose (Misc Panel) 214H 04/05/19 08:08: Anion Gap 9, Glomerular Filtration Rate > 60.0, Blood Urea Nitrogen 12, Creatinine 1.05, Sodium Level 138, Potassium Level 4.0, Chloride Level 109H, Carbon Dioxide Level 20L, Calcium Level 8.2L 04/05/19 08:56: Nucleated Red Blood Cells % (auto) 0.0 04/05/19 11:22: Bedside Glucose (Misc Panel) 192H 04/05/19 16:30: Bedside Glucose (Misc Panel) 217H CBC/BMP Laboratory Tests 04/05/19 08:08 Calcium Level 8.2 L 04/05/19 08:56 Red Blood Count 3.89 L, Mean Corpuscular Volume 93.6, Mean Corpuscular Hemoglobin 32.4, Mean Corpuscular Hemoglobin Concent 34.6, Red Cell Distribution Width 13.1 FSBS Laboratory Tests Test 04/04/19 21:18 04/05/19 07:21 04/05/19 11:22 04/05/19 16:30 Range/Units Bedside Glucose (Misc Panel) 268 214 192 217 80-115 MG/DL Discharge Medications Scheduled Aspirin (Aspir 81) 81 Mg Tablet.dr, 81 MG PO QHS, (Reported) Atorvastatin Calcium (Atorvastatin Calcium) 20 Mg Tab, 20 MG PO QHS, (Reported) Carvedilol (Carvedilol) 6.25 Mg Tab, 6.25 MG PO QHS, (Reported) Clopidogrel Bisulfate (Clopidogrel) 75 Mg Tablet, 75 MG PO DAILY Losartan Potassium (Losartan Potassium) 25 Mg Tablet, 12.5 MG PO QHS, (Reported) Metformin HCl (Metformin HCl) 1,000 Mg Tablet, 1 GRAM PO BID Scheduled PRN Tramadol HCl (Tramadol HCl) 50 Mg Tablet, 50 MG PO DAILY PRN for pain, (Reported) Allergies Coded Allergies: morphine (Verified Adverse Reaction, Unknown, 04/03/19) GWEN GUERRERO DO Apr 05, 2019 18:09
--- NOTE | 2019-04-06 08:33 | CR ---
DATE OF CONSULTATION: 04/05/2019 REFERRING PHYSICIAN: Dr. Cadet REASON FOR CONSULTATION: Episode of confusion. HISTORY OF PRESENT ILLNESS: Cesar Saleem is a 63-year-old man who was at his baseline state of health until Wednesday, April 03, 2019. He woke up fine and mowed the lawn and worked outside in his yard. He went to attend a wedding around 2:30 p.m. and he felt dizzy and fuzzy. He was unable to recognize people that he had known for 40 years. His thought that something was odd. She took him to a restaurant to have lunch. He kept ordering a cheeseburger even if he was asked about water or cold drink. The patient himself has trouble walking due to his severe hip deformity. When they got back to the car, the patient was unable to use seat belt and did not know how to close the door. He kept repeating himself and asked what was wrong and asked his why do I keep saying it. He was brought to [facility] emergency department. His symptoms lasted till the next morning. He felt significantly better on Friday morning and he was back to his baseline today. He still does not remember much of this past Friday unless his family tells him about it. He denies any headaches, neck or back pain. He denies any numbness, weakness of his arms and legs, dysphagia and dysarthria, diplopia or urinary incontinence. DIAGNOSTIC STUDIES: CT scan of head and MRI scan of brain showed mild atrophy and small-vessel ischemic disease of brain. CT angiography of head and neck showed 70% left internal carotid artery stenosis in his neck and the right carotid artery atherosclerosis. CTA of brain showed fusiform dilation 6 mm of right vertebral artery and 5.5 mm of basilar artery. PAST MEDICAL HISTORY: Diabetes, hypertension, dyslipidemia, right hip arthritis status post total right hip replacement, right wrist surgery due to accident. SOCIAL HISTORY: Quit smoking 3 years ago. FAMILY HISTORY: Mother had cancer. REVIEW OF SYSTEMS: All systems were reviewed and found to be noncontributory except as mentioned in history of present illness. CURRENT MEDICATIONS: - aspirin 81 mg p.o. daily - Lipitor 20 mg p.o. daily - carvedilol 6.25 mg p.o. b.i.d. - losartan 12.5 mg p.o. daily - tramadol 50 mg daily as needed ALLERGIES: MORPHINE. PHYSICAL EXAMINATION: Temperature 98.7, pulse 62, respiratory 18, blood pressure 139/65, 97% saturation on room air. Heart: Regular rate and rhythm. Lungs: Clear to auscultation. Abdomen: Soft, nontender, nondistended. Extremities: No pedal edema. No musculoskeletal abnormalities. No rash. NEUROLOGIC: No signs of meningeal irritation. The patient is awake, alert, oriented to place, person and time. He is able to tell me day, date, month, year, name of city, state, country, president, his phone number, his address, names of his children and grandchildren. Extraoral muscles are intact. No facial weakness. Uvula midline. Recent and distant memory is intact. Visual farrell are full to confrontation. There is no nystagmus. 5/5 strength in all extremities. Deep tendon reflexes 2+ throughout. Normal sensation throughout. Gait is normal except due to his arthritis in his hip joint. ASSESSMENT: 1. Transient global amnesia. 2. There is concern for TIA. 3. 70% left internal carotid artery stenosis. 4. Fusiform dilation of right vertebral artery and basilar artery, as described above. PLAN: 1. Continue aspirin 81 mg p.o. daily and Plavix 75 mg p.o. daily. 2. The patient has been seen by vascular surgery, and I agree that he needs left carotid endarterectomy. 3. I do not think that the patient has dementia. He likely developed transient global amnesia, which has improved since. He can be discharged home and follow up with our office within a month after hospital discharge.
== END 2019-04-05 18:42 | disposition home or self-care (01) ==
LOC: M ED 16:00 → M ED INP 16:01 → M PCU 22:00
PROVIDERS: ADMIT Internal Medicine; ATTEND Internal Medicine
DX: I65.22 Occlusion and stenosis of left carotid artery (principal); R41.82 Altered mental status, unspecified; E11.9 Type 2 diabetes mellitus without complications; I10 Essential (primary) hypertension; E78.49 Other hyperlipidemia; E66.9 Obesity, unspecified; M16.11 Unilateral primary osteoarthritis, right hip; Z79.82 Long term (current) use of aspirin; Z79.84 Long term (current) use of oral hypoglycemic drugs; Z79.899 Other long term (current) drug therapy; Z88.5 Allergy status to narcotic agent; Z87.891 Personal history of nicotine dependence
CPT/HCPCS: 36415; 70450; 70496; 70498; 70551; 71045; 80048; 80061; 80076; 80307; 81001; 82550; 82553; 83036; 83735; 84443; 84484; 85025; 85027; 85610; 90471; 90670; 93005; 93041; 93880; 94760; 96361; 96374; 99285; G0480; Q9967

== ENCOUNTER 2020-01-22 16:17 | Emergency (ER) | payer OTHER ==
[~2020-01-22] VITALS: Ht 182.9 cm; Wt 104.5 kg
[~2020-01-22 16:17] MED LIST changes: +ASPI81TA86 PO; +CLOP75TA2 PO; +LOSA25TA14 PO; +METF-877 PO; +TRAM50TA2 PO
[2020-01-22] MEDS ORDERED: traMADol 50 MG TAB PO ONE (17:30)
[2020-01-22] MEDS ORDERED: ACETAMINOPHEN 325 MG TAB PO ONE (17:30)
[2020-01-22] MEDS ORDERED: BOOSTRIX/ADACEL VACCINE (DIPHTH/PERTUSS/ACELL/TETANUS) 0.5ML SYR IM ONE (17:45)
[2020-01-22] MEDS ORDERED: NORCO, ANEXSIA 5/325MG TABLET (HYDROcodone/ACETAMINOPHEN) PO ONE (19:15)
[2020-01-22] MEDS ORDERED: LIDOCAINE 1% MDV 20ML VIAL As Ordered ONE (19:32)
[2020-01-22] MEDS ORDERED: LIDOCAINE 1% MDV 20ML VIAL SC ONE (19:45)
[2020-01-22] MEDS ORDERED: KEFL500C17 PO (20:35)
[2020-01-22] MEDS ORDERED: NORC1TAB7 PO (20:39)
[2020-01-22] MEDS ORDERED: NORCO 5/325MG TABLET (BULK FOR ED) PO ONE (20:45)
[2020-01-22] MEDS ORDERED: CEPHALEXIN 500 MG CAP PO ONE (20:45)
[2020-01-22 21:22] VITALS: BP 174/86
--- NOTE | 2020-01-23 09:43 | REP ---
REASON: Trauma. There is a comminuted fracture involving the tuft of the 1st digit with associated soft tissue swelling. Overlying bandage material obscures the bony detail of digits 1 through 3, inclusive. Marked and severe degenerative changes are seen involving the wrist and all of the bases of the 2nd through 4th metacarpals. I cannot rule out the possibility of additional fractures involving these severely degenerated ossific structures of the wrist. Consider wrist series or even CT if clinically relevant. Electronically Signed by Giuliano Pathak DO 01/23/2020 09:50 A
== END 2020-01-22 21:23 | disposition home or self-care (01) ==
LOC: M ED 16:17
DX: S66.322A Laceration of extensor muscle, fascia and tendon of right middle finger at wrist and hand level, initial encounter (principal); S61.210A Laceration without foreign body of right index finger without damage to nail, initial encounter; S61.111A Laceration without foreign body of right thumb with damage to nail, initial encounter; W31.2XXA Contact with powered woodworking and forming machines, initial encounter; Y92.009 Unspecified place in unspecified non-institutional (private) residence as the place of occurrence of the external cause; Y93.9 Activity, unspecified; Y99.9 Unspecified external cause status; E11.9 Type 2 diabetes mellitus without complications; I10 Essential (primary) hypertension; E78.5 Hyperlipidemia, unspecified; Z79.01 Long term (current) use of anticoagulants; Z79.84 Long term (current) use of oral hypoglycemic drugs; Z79.899 Other long term (current) drug therapy; Z79.82 Long term (current) use of aspirin; Z88.5 Allergy status to narcotic agent

== ENCOUNTER → 2022-03-20 | Outpatient (CLI) | payer OTHER ==
[~2022-03-20] MED LIST changes: +KEFL500C17 PO; +LOSA25TA13 PO; -LOSA25TA14 PO; +NORC1TAB7 PO
== END ==
LOC: M RAD 14:38
PROVIDERS: ATTEND Internal Medicine
DX: Z12.2 Encounter for screening for malignant neoplasm of respiratory organs (principal); R63.4 Abnormal weight loss; Z87.891 Personal history of nicotine dependence; R91.8 Other nonspecific abnormal finding of lung field

== ENCOUNTER 2022-03-30 08:43 | Inpatient (IN) | payer OTHER ==
[2022-03-30] VITALS (7 sets, daily range): BP systolic 119–169; BP diastolic 59–87
[~2022-03-30] VITALS: Ht 182.9 cm; Wt 87.3 kg
[2022-03-30] MEDS ORDERED: HYDR12.55 PO (08:54)
[2022-03-30] MEDS ORDERED: NS 500 ML IV ONE (10:00)
[2022-03-30 10:57] LABS: BASO # 0.1 10^3/uL (0.0-0.2); BASO % 0.5 % (0.0-1.0); EOS # 0.3 10^3/uL (0.0-0.5); EOS % 2.7 % (0.0-3.0); HEMATOCRIT 44.4 % (42.0-52.0); HEMOGLOBIN 14.1 g/dl (13.5-17.5); LYMPH # 1.4 10^3/uL (1.5-5.0); LYMPH % 14.6 % (24.0-44.0); MEAN CORPUSCULAR HEMOGLOBIN 30.1 pg (27.0-33.0); MEAN CORPUSCULAR HGB CONC 31.8 g/dl (32.0-36.5); MEAN CORPUSCULAR VOLUME 94.7 fl (80.0-96.0); MONO % 10.1 % (2.0-8.0); NEUTROPHILS # 7.1 10^3/uL (1.5-8.5); NEUTROPHILS % 71.6 % (36.0-66.0); PLATELET COUNT, AUTOMATED 246 10^3/uL (150-450); RED BLOOD COUNT 4.69 10^6/uL (4.30-6.10); WHITE BLOOD COUNT 9.9 10^3/uL (4.0-10.0)
[2022-03-30] MEDS ORDERED: ISOVUE-370 76% 100ML VIAL As Ordered ONE (10:58)
[2022-03-30] MEDS ORDERED: PLAV1TAB2 PO (11:18)
[2022-03-30] MEDS ORDERED: LOSA100T45 PO (11:18)
[2022-03-30] MEDS ORDERED: ASPI81TA26 PO (11:18)
[2022-03-30] MEDS ORDERED: HOME MED LIST COMPLETE! XX SCH (11:20)
[2022-03-30 11:32] LABS: RSV AMPLIFICATION NEGATIVE (NEGATIVE)
[2022-03-30] MEDS ORDERED: PIPERACILLIN/TAZOBACTAM SOD 4.5 GM in D5W MINI-BAG PLUS 50 ML IV ONE (11:45)
[2022-03-30] MEDS ORDERED: NS 1,000 ML IV ONE (11:50)
[2022-03-30 12:11] LABS: ALBUMIN 3.4 GM/DL (3.2-5.2); BILIRUBIN,DIRECT 0.1 MG/DL (0.0-0.2); BILIRUBIN,TOTAL 0.6 MG/DL (0.2-1.0); TOTAL PROTEIN 7.9 GM/DL (6.4-8.2)
[2022-03-30] MEDS ORDERED: fentaNYL 250 MCG/5 ML INJECTION As Ordered ONE (12:52)
[2022-03-30] MEDS ORDERED: propofoL 200 MG/20 ML VIAL As Ordered ONE (12:53)
[2022-03-30] MEDS ORDERED: SUCCINYLCHOLINE 100 MG/5 ML SYRINGE (J0330) As Ordered ONE (12:53)
[2022-03-30] MEDS ORDERED: ROCURONIUM BROMIDE 50 MG/5 ML VIAL As Ordered ONE (12:53)
[2022-03-30] MEDS ORDERED: MIDAZOLAM INJ 2MG/2ML VIAL (J2250 PER 1MG) As Ordered ONE (12:53)
[2022-03-30] MEDS ORDERED: LIDOCAINE 2% 100MG/5ML SDV (FOR ANES.) As Ordered ONE (12:53)
[2022-03-30] MEDS ORDERED: BUPIVACAINE HCL 0.25% 30ML VIAL As Ordered ONE (12:57)
[2022-03-30] MEDS ORDERED: LIDOCAINE 1% SDV 30ML VIAL As Ordered ONE (12:57)
[2022-03-30] MEDS ORDERED: BUPIVACAINE LIPOSOME/PF 1.3% 20ML VIAL (13.3MG/ML)(EXPAREL) As Ordered ONE (12:58)
[2022-03-30] MEDS ORDERED: LR 1,000 ML IV SCH ×2 (13:10→14:45)
[2022-03-30] MEDS ORDERED: dexameTHASONE 4 MG/ML 1ML VIAL (J1100 PER 1MG) As Ordered ONE (13:35)
[2022-03-30] MEDS ORDERED: PHENYLephrine 500MCG 5ML (100MCG/ML) SYRINGE As Ordered ONE (13:38)
[2022-03-30] MEDS ORDERED: ZOSYN 4.5GM VIAL (J2543) IV ONE (14:00)
[2022-03-30] MEDS ORDERED: ACETAMINOPHEN 1000MG 100ML IV BTL (OFIRMEV) (J0131 PER 10MG) As Ordered ONE (14:27)
[2022-03-30] MEDS ORDERED: ONDANSETRON 4MG 2ML VIAL As Ordered ONE (14:27)
[2022-03-30] MEDS ORDERED: SUGAMMADEX SODIUM 500 MG/5 ML VIAL (BRIDION) As Ordered ONE (14:27)
[2022-03-30] MEDS ORDERED: ePHEDrine SULFATE 25 MG/5 ML(5MG/ML) SYRINGE As Ordered ONE (14:37)
[2022-03-30] MEDS ORDERED: HYDROMORPHONE HCL 0.5 MG/ 0.5 ML SYRINGE (J1170 PER 1) IV PRN (14:45)
[2022-03-30] MEDS ORDERED: fentaNYL 100 MCG/2 ML INJECTION IV PRN (14:45)
[2022-03-30] MEDS ORDERED: ONDANSETRON 4MG 2ML VIAL IV PRN ×2 (14:45→15:05)
[2022-03-30] MEDS ORDERED: oxyCODONE 5MG TAB PO PRN ×2 (14:45→16:35)
[2022-03-30] MEDS ORDERED: ACETAMINOPHEN TAB 650MG DOSE (2X325MG) PO PRN (15:05)
[2022-03-30] MEDS: LR 1,000 ML IV SCH (17:40)
[2022-03-30] MEDS: PIPERACILLIN/TAZOBACTAM SOD 3.375 GM in D5W MINI-BAG PLUS 50 ML IV SCH (20:17)
[2022-03-30] MEDS: CARVedilol 6.25 MG TAB PO SCH (20:17)
[2022-03-31] VITALS: BP 139/69
[2022-03-31] MEDS: PIPERACILLIN/TAZOBACTAM SOD 3.375 GM in D5W MINI-BAG PLUS 50 ML IV SCH ×4 (02:19→20:48)
[2022-03-31] MEDS: LR 1,000 ML IV SCH (02:52)
[2022-03-31 04:00] VITALS: BP 128/63
[2022-03-31 07:56] LABS: BASO % 0.3 % (0.0-1.0); EOS # 0.1 10^3/uL (0.0-0.5); EOS % 0.9 % (0.0-3.0); HEMATOCRIT 39.9 % (42.0-52.0); HEMOGLOBIN 12.6 g/dl (13.5-17.5); LYMPH # 1.7 10^3/uL (1.5-5.0); LYMPH % 17.6 % (24.0-44.0); MEAN CORPUSCULAR HEMOGLOBIN 29.9 pg (27.0-33.0); MEAN CORPUSCULAR HGB CONC 31.6 g/dl (32.0-36.5); MEAN CORPUSCULAR VOLUME 94.8 fl (80.0-96.0); MONO # 0.7 10^3/uL (0.0-0.8); MONO % 7.5 % (2.0-8.0); NEUTROPHILS % 73.2 % (36.0-66.0); PLATELET COUNT, AUTOMATED 225 10^3/uL (150-450); RED BLOOD COUNT 4.21 10^6/uL (4.30-6.10); WHITE BLOOD COUNT 9.6 10^3/uL (4.0-10.0)
[2022-03-31 08:20] LABS: BLOOD UREA NITROGEN 12 MG/DL (7-18); CALCIUM LEVEL 8.6 MG/DL (8.8-10.2); CARBON DIOXIDE LEVEL 26 MEQ/L (21-32); CHLORIDE LEVEL 107 MEQ/L (98-107); CREATININE FOR GFR 1.05 MG/DL (0.70-1.30); GLOMERULAR FILTRATION RATE > 60.0 (>49); GLUCOSE, FASTING 97 MG/DL (70-100); POTASSIUM SERUM 3.9 MEQ/L (3.5-5.1); SODIUM LEVEL 137 MEQ/L (136-145)
[2022-03-31] MEDS: CARVedilol 6.25 MG TAB PO SCH ×2 (08:23→20:48)
[2022-03-31 10:46] LABS: C REACTIVE PROTEIN QUANTITATIV 0.66 MG/DL (0.00-0.30)
[2022-03-31 14:00] VITALS: BP 157/77
[2022-03-31 14:58] VITALS: BP 156/80
[2022-03-31 21:41] VITALS: BP 109/55
[2022-04-01] MEDS: PIPERACILLIN/TAZOBACTAM SOD 3.375 GM in D5W MINI-BAG PLUS 50 ML IV SCH ×4 (02:52→20:44)
[2022-04-01 06:00] VITALS: BP 124/76
[2022-04-01 06:21] LABS: BASO % 0.6 % (0.0-1.0); EOS # 0.2 10^3/uL (0.0-0.5); EOS % 2.5 % (0.0-3.0); HEMATOCRIT 35.4 % (42.0-52.0); HEMOGLOBIN 11.2 g/dl (13.5-17.5); LYMPH # 1.5 10^3/uL (1.5-5.0); LYMPH % 21.5 % (24.0-44.0); MEAN CORPUSCULAR HGB CONC 31.6 g/dl (32.0-36.5); MEAN CORPUSCULAR VOLUME 94.9 fl (80.0-96.0); MONO # 0.6 10^3/uL (0.0-0.8); MONO % 7.9 % (2.0-8.0); NEUTROPHILS # 4.8 10^3/uL (1.5-8.5); NEUTROPHILS % 67.1 % (36.0-66.0); PLATELET COUNT, AUTOMATED 184 10^3/uL (150-450); RED BLOOD COUNT 3.73 10^6/uL (4.30-6.10); WHITE BLOOD COUNT 7.1 10^3/uL (4.0-10.0)
[2022-04-01 06:54] LABS: BLOOD UREA NITROGEN 13 MG/DL (7-18); CALCIUM LEVEL 8.3 MG/DL (8.8-10.2); CARBON DIOXIDE LEVEL 26 MEQ/L (21-32); CHLORIDE LEVEL 110 MEQ/L (98-107); CREATININE FOR GFR 1.08 MG/DL (0.70-1.30); GLOMERULAR FILTRATION RATE > 60.0 (>49); GLUCOSE, FASTING 95 MG/DL (70-100); POTASSIUM SERUM 3.8 MEQ/L (3.5-5.1); SODIUM LEVEL 142 MEQ/L (136-145)
[2022-04-01] MEDS: CARVedilol 6.25 MG TAB PO SCH ×2 (08:38→20:45)
[2022-04-01 14:00] VITALS: BP 160/80
[2022-04-01] MEDS ORDERED: LIDOCAINE 1% MDV 20ML VIAL As Ordered ONE (15:05)
[2022-04-01 16:15] VITALS: BP 160/80
[2022-04-01 17:00] VITALS: BP 156/80
[2022-04-01 20:00] VITALS: BP 136/63
[2022-04-02] MEDS: PIPERACILLIN/TAZOBACTAM SOD 3.375 GM in D5W MINI-BAG PLUS 50 ML IV SCH ×4 (03:00→20:50)
[2022-04-02 06:00] VITALS: BP 153/81
[2022-04-02 06:20] LABS: BASO % 0.5 % (0.0-1.0); EOS # 0.2 10^3/uL (0.0-0.5); EOS % 3.3 % (0.0-3.0); HEMATOCRIT 37.6 % (42.0-52.0); HEMOGLOBIN 12.1 g/dl (13.5-17.5); LYMPH # 1.3 10^3/uL (1.5-5.0); LYMPH % 17.3 % (24.0-44.0); MEAN CORPUSCULAR HEMOGLOBIN 29.9 pg (27.0-33.0); MEAN CORPUSCULAR HGB CONC 32.2 g/dl (32.0-36.5); MEAN CORPUSCULAR VOLUME 92.8 fl (80.0-96.0); MONO # 0.7 10^3/uL (0.0-0.8); MONO % 9.2 % (2.0-8.0); NEUTROPHILS # 5.1 10^3/uL (1.5-8.5); NEUTROPHILS % 69.4 % (36.0-66.0); PLATELET COUNT, AUTOMATED 194 10^3/uL (150-450); RED BLOOD COUNT 4.05 10^6/uL (4.30-6.10); WHITE BLOOD COUNT 7.4 10^3/uL (4.0-10.0)
[2022-04-02 06:58] LABS: BLOOD UREA NITROGEN 13 MG/DL (7-18); CALCIUM LEVEL 8.6 MG/DL (8.8-10.2); CARBON DIOXIDE LEVEL 26 MEQ/L (21-32); CHLORIDE LEVEL 108 MEQ/L (98-107); CREATININE FOR GFR 1.03 MG/DL (0.70-1.30); GLOMERULAR FILTRATION RATE > 60.0 (>49); GLUCOSE, FASTING 97 MG/DL (70-100); POTASSIUM SERUM 3.8 MEQ/L (3.5-5.1); SODIUM LEVEL 140 MEQ/L (136-145)
[2022-04-02] MEDS: CARVedilol 6.25 MG TAB PO SCH ×2 (08:10→20:56)
[2022-04-02 09:48] VITALS: BP 140/70
[2022-04-02] MEDS ORDERED: FLUBLOK(EGG FREE)(QUAD)INFLUENZA VACC 0.5ML SYRINGE 18YRS & OLDER IM.IMMUN ONE (18:15)
[2022-04-02] MEDS ORDERED: CLOPIDOGREL 75 MG TAB PO SCH (21:00)
[2022-04-02] MEDS ORDERED: LOSARTAN 50MG TABLET PO SCH (21:00)
[2022-04-02] MEDS ORDERED: ASPIRIN 81MG ENTERIC TABLET PO SCH (21:00)
[2022-04-02 22:00] VITALS: BP 154/80
[2022-04-03] MEDS: PIPERACILLIN/TAZOBACTAM SOD 3.375 GM in D5W MINI-BAG PLUS 50 ML IV SCH ×2 (02:20→09:52)
[2022-04-03 06:00] VITALS: BP 155/85
[2022-04-03 06:41] LABS: BASO % 0.3 % (0.0-1.0); EOS # 0.2 10^3/uL (0.0-0.5); EOS % 2.4 % (0.0-3.0); HEMATOCRIT 37.1 % (42.0-52.0); LYMPH # 1.1 10^3/uL (1.5-5.0); LYMPH % 12.1 % (24.0-44.0); MEAN CORPUSCULAR HEMOGLOBIN 30.2 pg (27.0-33.0); MEAN CORPUSCULAR HGB CONC 32.3 g/dl (32.0-36.5); MEAN CORPUSCULAR VOLUME 93.2 fl (80.0-96.0); MONO # 0.8 10^3/uL (0.0-0.8); MONO % 8.9 % (2.0-8.0); NEUTROPHILS # 6.6 10^3/uL (1.5-8.5); NEUTROPHILS % 75.8 % (36.0-66.0); PLATELET COUNT, AUTOMATED 190 10^3/uL (150-450); RED BLOOD COUNT 3.98 10^6/uL (4.30-6.10); WHITE BLOOD COUNT 8.7 10^3/uL (4.0-10.0)
[2022-04-03 07:08] LABS: BLOOD UREA NITROGEN 11 MG/DL (7-18); CALCIUM LEVEL 8.2 MG/DL (8.8-10.2); CARBON DIOXIDE LEVEL 24 MEQ/L (21-32); CHLORIDE LEVEL 107 MEQ/L (98-107); CREATININE FOR GFR 0.94 MG/DL (0.70-1.30); GLOMERULAR FILTRATION RATE > 60.0 (>49); GLUCOSE, FASTING 108 MG/DL (70-100); POTASSIUM SERUM 3.8 MEQ/L (3.5-5.1); SODIUM LEVEL 138 MEQ/L (136-145)
[2022-04-03 09:52] VITALS: BP 155/85
[2022-04-03] MEDS: CARVedilol 6.25 MG TAB PO SCH (09:52)
[2022-04-03] MEDS: ENOXAPARIN 40MG/0.4ML SYRINGE (J1650 PER 10MG) SC SCH ×2 (09:53→09:54)
[2022-04-03] MEDS ORDERED: ACET1TAB55 PO (12:11)
[2022-04-03] MEDS ORDERED: METR-265 PO (12:22)
[2022-04-03] MEDS ORDERED: hydroCHLOROthiazide 12.5 MG CAPSULE PO SCH (21:00)
[2022-04-09] MEDS ORDERED: BICA50TA9 PO (14:28)
== END 2022-04-03 12:55 | disposition home or self-care (01) | DRG 223 ==
LOC: M ED 08:43 → M ED INP 13:10 → M PED 17:10 → M MS5PR 03-31 14:35
PROVIDERS: ADMIT Internal Medicine Nephrology; ATTEND Family Medicine
PROC: 0DJD4ZZ Inspection of Lower Intestinal Tract, Percutaneous Endoscopic Approach (ICD-10-PCS; 2022-03-30)
PROC: 07B63ZX Excision of Left Axillary Lymphatic, Percutaneous Approach, Diagnostic (ICD-10-PCS; principal; 2022-04-01 15:08)
DX: K63.89 Other specified diseases of intestine (principal); K55.9 Vascular disorder of intestine, unspecified; R18.8 Other ascites; I65.22 Occlusion and stenosis of left carotid artery; F03.90 Unspecified dementia, unspecified severity, without behavioral disturbance, psychotic disturbance, mood disturbance, and anxiety; R15.9 Full incontinence of feces; R59.0 Localized enlarged lymph nodes; R19.7 Diarrhea, unspecified; E11.9 Type 2 diabetes mellitus without complications; I10 Essential (primary) hypertension; E78.5 Hyperlipidemia, unspecified; Z86.73 Personal history of transient ischemic attack (TIA), and cerebral infarction without residual deficits; R91.8 Other nonspecific abnormal finding of lung field; Z79.82 Long term (current) use of aspirin; Z79.899 Other long term (current) drug therapy; Z88.5 Allergy status to narcotic agent; M19.90 Unspecified osteoarthritis, unspecified site; Z96.643 Presence of artificial hip joint, bilateral; Z87.891 Personal history of nicotine dependence; C77.2 Secondary and unspecified malignant neoplasm of intra-abdominal lymph nodes

== ENCOUNTER → 2022-04-09 | Outpatient (CLI) | payer OTHER ==
[~2022-04-09] MED LIST changes: +ACET1TAB55 PO; +ASPI81TA26 PO; +BICA50TA9 PO; +LOSA100T45 PO; +METR-265 PO; +PLAV1TAB2 PO
[2022-04-11 13:08] LABS: PSA TOTAL 12.7 ng/mL (0.0-4.0)
== END ==
LOC: M ONCR 13:11
PROVIDERS: ATTEND General Practice
DX: C61 Malignant neoplasm of prostate (principal); C77.2 Secondary and unspecified malignant neoplasm of intra-abdominal lymph nodes; E78.5 Hyperlipidemia, unspecified; I10 Essential (primary) hypertension; N52.9 Male erectile dysfunction, unspecified; R91.8 Other nonspecific abnormal finding of lung field; Z79.02 Long term (current) use of antithrombotics/antiplatelets; Z79.82 Long term (current) use of aspirin; Z79.899 Other long term (current) drug therapy; Z80.0 Family history of malignant neoplasm of digestive organs; Z87.891 Personal history of nicotine dependence; Z88.5 Allergy status to narcotic agent; Z86.73 Personal history of transient ischemic attack (TIA), and cerebral infarction without residual deficits; Z96.643 Presence of artificial hip joint, bilateral
CPT/HCPCS: 84154; 84403; G0463

== ENCOUNTER → 2022-04-18 | Outpatient (CLI) | payer OTHER ==
[~2022-04-18] MED LIST changes: +ISOVUE-370 76% 100ML VIAL As Ordered ONE
== END ==
LOC: M RAD 16:48
PROVIDERS: ATTEND Internal Medicine
DX: E04.1 Nontoxic single thyroid nodule (principal); K76.0 Fatty (change of) liver, not elsewhere classified; R91.8 Other nonspecific abnormal finding of lung field; J43.9 Emphysema, unspecified; D38.1 Neoplasm of uncertain behavior of trachea, bronchus and lung
CPT/HCPCS: 71260; Q9967